=== PATIENT | female | born 1980 | race African-American/Black ===

== ENCOUNTER 2016-10-11 23:01 | Emergency (ER) | payer OTHER ==
[~2016-10-11 23:01] MED LIST: ALBUTEROL17 GM INH; AMOXICILLIN PO; AMOXICILLIN500 M1 PO; DIFLUCAN PO; EC-NAPROSYN500 MG PO; FLAGYL PO; IBUPROFEN800 MG PO; PHENERGAN PO; PREDNISONE10 MG/DOSE PO; PRENATAL VIT; TESSALON200 MG PO; VICODIN PO
== END 2016-10-11 23:42 | disposition home or self-care (01) ==
LOC: CED 23:01
DX: T78.1XXA Other adverse food reactions, not elsewhere classified, initial encounter (principal); J45.909 Unspecified asthma, uncomplicated
CPT/HCPCS: 99283